=== PATIENT | female | born 1965 | race Caucasian/White ===

== ENCOUNTER 2023-07-17 00:29 | Emergency (ER) | payer OTHER, SELFPAY ==
[2023-07-17 00:38] VITALS: BP 154/88; PULSE 66; RESP 16; TEMP 36.5; O2SAT 99; BMI 23.0
--- NOTE | 2023-07-17 00:56 | XR_ITS ---
The [address] [address] Patient Name: SARATH PRICE MRN: [id number] date: 1965 Sex: F Assigned Patient Location: ED.MAIN Current Patient Location: Accession/Order Number: [id number] Exam Date: 07/17/2023 01:50 Report Date: 07/17/2023 02:20 At the request of: EUGENE KAPADIA Procedure: XR lumbar spine 2-3V EXAM: XR lumbar spine 2-3V HISTORY: fall COMPARISON: Lumbar x-ray dated 05/01/2023. Lumbar x-ray dated 04/03/2023. Lumbar MRI dated 01/20/2023. TECHNIQUE: Single AP and 2 lateral views of the lumbar spine are presented. FINDINGS: Stable appearance of postsurgical changes with multilevel laminectomy associated with pedicle screw and bar fixation extending from L3 through L5. Postsurgical changes are also present at the L5-S1 level with metallic densities consistent with prior surgery including solid trabeculated bony fusion across the disc space. Posterolateral fusion bone is also appreciated. The construct is intact. No gross evidence of displacement is seen. The appearance the construct is unchanged as compared to the prior examination. There is disc space narrowing at L4-5 which is increased as compared to the prior study with bony sclerosis of the endplates. This would be consistent with early trabeculation, however the study does not adequately evaluate for complete fusion. The L3-4 disc space is unchanged. Posterolateral fusion bone is appreciated with fusion of the facets at the L3-4 level. There is increase in trabeculation noted associated with posterolateral fusion bone. XR/XR lumbar spine 2-3V IMPRESSION: 1. Stable appearance of the pedicle screw and bar construct extending from L3 through L5 as compared to the prior study. 2. Findings consistent with solid trabeculated bony fusion L5-S1. 3. Disc space narrowing with endplate sclerosis at L4-5 which is increased as compared to the prior study. This finding would be consistent with early trabeculation, however MRI or CT would better evaluate the presence of fusion. There is posterolateral bony fusion noted at L3-4 and L4-5. Electronically authenticated by: LUIS CASILLAS Date: 07/17/2023 02:20
--- NOTE | 2023-07-17 00:56 | CT_ITS ---
The [address] [address] Patient Name: SARATH PRICE MRN: [id number] date: 1965 Sex: F Assigned Patient Location: ER Current Patient Location: ER Accession/Order Number: [id number] Exam Date: 07/17/2023 01:40 Report Date: 07/17/2023 02:04 At the request of: EUGENE KAPADIA Procedure: CT head/brain wo con INDICATION: 58 years old; Female. Patient fell 4 times tonight. Dizziness. Question confusion. Same symptoms 3 days ago. TECHNIQUE: CT Head (ax/cor/sag reformats). Ionizing radiation dose reduced via iterative reconstruction/FBP blend and body size kV/mA adjustment. Comparison: None FINDINGS: POSTOPERATIVE CHANGES: None. BRAIN PARENCHYMA: No focal lesions. No mass effect. No midline shift or herniation. No intraparenchymal or extra-axial hemorrhage. Normal velázquez/white differentiation. VENTRICLES/EXTRA-AXIAL SPACES: Normal for patient's age. SINUSES/MASTOIDS: The visualized sinuses are clear. Mastoids and middle ears are clear. MSK: No displaced or depressed calvarial fracture. OTHER: No hyperdense intraluminal thrombus. Vascular calcifications are present. CT/CT head/brain wo con IMPRESSION: 1. No acute intracranial abnormality. No hemorrhage or mass effect. 2. Vascular calcification. If there is concern for acute infarction, recommend further imaging with MRI including diffusion. Electronically authenticated by: LUIS CASILLAS Date: 07/17/2023 02:04
--- NOTE | 2023-07-17 00:56 | XR_ITS ---
The [address] [address] Patient Name: SARATH PRICE MRN: [id number] date: 1965 Sex: F Assigned Patient Location: ED.MAIN Current Patient Location: ER Accession/Order Number: [id number] Exam Date: 07/17/2023 01:50 Report Date: 07/17/2023 02:13 At the request of: EUEGNE KAPADIA Procedure: XR chest 1V EXAM: XR chest 1V HISTORY: weak COMPARISON: None. TECHNIQUE: Portable AP radiograph of the chest. FINDINGS: The cardiomediastinal silhouette and pulmonary vasculature are normal. No focal airspace consolidations, pleural effusions, or pneumothorax. XR/XR chest 1V IMPRESSION: Unremarkable radiographic evaluation of the chest. Electronically authenticated by: JETT BE Date: 07/17/2023 02:13
--- NOTE | 2023-07-17 00:56 | ECG_ITS ---
The [facility] Test Date: 2023-07-17 Pat Name: Coco Griffin Department: Room: - Gender: Female [employer]: : 1965 Requested By: [id number] Order Number: [id number] Reading MD: WILLIS ROGERS Measurements Intervals [place] Rate: 60 P: 79 FL: 210 QRS: 58 QRSD: 84 T: 72 QT: 430 QTc: 431 Interpretive Statements 1100 Sinus rhythm 2231 First degree AV block 9150 abnormal ECG No previous ECG available for comparison Electronically Signed On 07-18-2023 5:31:07 EST by WILLIS ROGERS
--- NOTE | 2023-07-17 00:57 | ED_ITS ---
HPI - General Adult General Chief complaint: Head Injury Stated complaint: incoherent fall Time Seen by Provider: 07/17/23 00:50 Source: patient Mode of arrival: walk-in History of Present Illness HPI narrative: 58-year-old female presents to the emergency department for weakness and falling. Her states she's fallen four times today. The patient states she hurt her lower back, where she had her surgery. She was seen at another [facility] emergency department three days ago and had an apparently negative workup. She is on baclofen and gabapentin. She states she hasn't taken more that then she is suppossed to, no new other medications. Related Data Home Medications Medication Instructions Recorded Confirmed baclofen 10 mg tablet mg 07/17/23 doxepin 100 mg capsule mg 07/17/23 gabapentin 800 mg tablet mg 07/17/23 lisinopril 10 tab 07/17/23 mg-hydrochlorothiazide 12.5 mg tablet propranolol 60 mg capsule,24 mg PO 07/17/23 hr,extended release Previous Rx's Medication Instructions Recorded acetaminophen 300 mg-codeine 30 mg 1 tab PO Q6H PRN pain #20 tabs 07/17/23 tablet Allergies Allergy/AdvReac Type Severity Reaction Status Date / Time No Known Drug Allergies Allergy Verified 07/17/23 00:45 Review of Systems ROS Narrative A ten point review of systems is negative except as noted above. PFSH PFSH Social History Smoking status: Current every day smoker Exam Narrative Exam Narrative: Nurses note and vital signs reviewed and patient is not hypoxic. General: The patient appears in no apparent respiratory distress. Skin: Warm, dry, no pallor noted. There is no rash noted. Head: Normocephalic, atraumatic Eye: Normal conjunctiva, no drainage, EOMI. PERRL Ears, Nose, Mouth, and Throat: oral mucosa is moist. Nares patent. Mouth without vesicles. Ear canals patent. Tm's without Erythema Cardiovascular: Regular Rate and Rhythm Respiratory: Patient is in no distress, no accessory muscle use, lungs are clear to auscultation, no wheezing, rales or rhonchi Back: old healed lumbar surgical scar present. No bruise or abrasion present GI: no tenderness to palpation, no masses appreciated. No rebound, guarding, or rigidity noted. Musculoskeletal: The patient has no evidence of calf tenderness, no pitting edema, symmetrical pulses noted bilaterally Neurological: A&O x4, speech is slow and minimally slurred. Upper and lower extremity strength intact. Psychiatric: Cooperative Constitutional Vital Signs, click to edit/add: Last Vital Signs Temp 97.7 F 07/17/23 00:38 Pulse 61 07/17/23 01:08 Resp 16 07/17/23 01:08 BP 106/60 07/17/23 02:46 Pulse Ox 97 07/17/23 02:46 O2 Del Method Room Air 07/17/23 00:38 Course Vital Signs Vital signs: Vital Signs Temperature 97.7 F 07/17/23 00:38 Pulse Rate 66 07/17/23 00:38 Respiratory Rate 16 07/17/23 00:38 Blood Pressure 154/88 H 07/17/23 00:38 Pulse Oximetry 99 07/17/23 00:38 Oxygen Delivery Method Room Air 07/17/23 00:38 Temperature 97.7 F 07/17/23 00:38 Pulse Rate 61 07/17/23 01:08 Respiratory Rate 16 07/17/23 01:08 Blood Pressure 106/60 07/17/23 02:46 Pulse Oximetry 97 07/17/23 02:46 Oxygen Delivery Method Room Air 07/17/23 00:38 Medical Decision Making MDM Narrative Medical decision making narrative: her laboratory analysis is negative. She tested positive for marijuana and benzodiazepines. She is on doxepin which is a tricyclic antidepressant and she tested positive for TCA also. She was recently started on baclofen and shortly afterwards is when her symptoms started. She'll discontinue the baclofen and follow up promptly with her family physician. Differential Diagnosis Differential Diagnosis: dehydration, anemia, acute kidney injury, lumbar fracture, acute ICH Lab Data Lab results reviewed: Yes I reviewed the patient's lab results Labs: Lab Results 07/17/23 07/17/23 Range/Units 01:00 03:04 WBC 8.4 (4.0-11.0) 10^3/uL RBC 4.12 L (4.20-5.40) 10^6/uL Hgb 12.7 (12.0-16.0) g/dL Hct 40.1 (36.0-48.0) % MCV 97.3 (81.0-99.0) fL MCH 30.8 (26.7-34.0) pg MCHC 31.7 (29.9-35.2) g/dL RDW 14.7 (11.0-15.0) % Plt Count 334 (150-450) 10^3/uL MPV 10.0 (9.5-13.5) fL Neut % (Auto) 59.6 (43.0-75.0) % Lymph % (Auto) 28.0 (20.5-60.0) % [place] % (Auto) 6.6 (1.7-12.0) % Eos % (Auto) 4.9 (0.9-7.0) % Baso % (Auto) 0.7 (0.2-2.0) % Neut # (Auto) 5.0 (1.4-6.5) 10^3/uL Lymph # (Auto) 2.4 (1.2-3.8) 10^3/uL [place] # (Auto) 0.6 (0.3-0.8) 10^3/uL Eos # (Auto) 0.4 (0.0-0.7) 10^3/uL Baso # (Auto) 0.1 (0.0-0.1) 10^3/uL Abs Immat Gran (auto) 0.02 (0.00-0.03) 10^3/uL Imm/Tot Granulo (auto) 0.2 (0.0-0.5) % Sodium 145 (136-145) mmol/L Potassium 3.7 (3.5-5.1) mmol/L Chloride 107 (98-107) mmol/L Carbon Dioxide 27.7 (21.0-32.0) mmol/L Anion Gap 14.0 BUN 47.0 H (7.0-18.0) mg/dL Creatinine 1.65 H (0.55-1.02) mg/dL Est GFR ( Amer) 39 L (>=60) Est GFR (Non-Af Amer) 32 L (>=60) BUN/Creatinine Ratio 28.5 Glucose 154 H (74-106) mg/dL Calcium 9.7 (8.5-10.1) mg/dL Total Bilirubin 0.2 (0.2-1.0) mg/dL Direct Bilirubin 0.1 (0.0-0.2) mg/dL AST 11 L (15-37) U/L ALT 22 (14-59) U/L Alkaline Phosphatase 135 H (46-116) U/L Total Protein 8.1 (6.4-8.2) g/dL Albumin 3.9 (3.4-5.0) g/dL Globulin 4.2 g/dL Albumin/Globulin Ratio 0.9 Urine Color Lt. yellow (YELLOW) Urine Clarity Clear (CLEAR) Urine pH 6.5 (5.0-9.0) Ur Specific [place] 1.015 (1.005-1.025) Urine Protein Negative (NEG/TRACE) mg/dL Urine Glucose (UA) Negative (NEGATIVE) mg/dL Urine Ketones Negative (NEGATIVE) mg/dL Urine Occult Blood Negative (NEGATIVE) Urine Nitrite Negative (NEGATIVE) Urine Bilirubin Negative (NEGATIVE) Urine Urobilinogen 0.2 (0.2-1.0) EU/dL Ur Leukocyte Esterase Trace A (NEGATIVE) Urine RBC 0-2 (0-2) #/HPF Urine WBC 0-2 A (NONE SEEN) #/HPF Ur Squamous Epith Cells Rare (NONE/RARE) #/LPF Urine Crystals None seen (None Seen) #/HPF Urine Bacteria None seen (NONE SEEN) #/HPF Urine Casts None seen (NONE SEEN) #/LPF Urine Mucus None seen (NONE SEEN) Urine Opiates Screen Negative (NEGATIVE) Ur Buprenorphine Scrn Negative (NEGATIVE) Ur Oxycodone Screen Negative (NEGATIVE) Urine Methadone Screen Negative (NEGATIVE) Ur Barbiturates Screen Negative (NEGATIVE) U Tricyclic Antidepress Positive A (NEGATIVE) Ur Phencyclidine Scrn Negative (NEGATIVE) Ur Amphetamines Screen Negative (NEGATIVE) U Methamphetamines Scrn Negative (NEGATIVE) U Benzodiazepines Scrn Positive A (NEGATIVE) Urine Cocaine Screen Negative (NEGATIVE) U Cannabinoids Screen Positive A (NEGATIVE) Ethanol Quant <3 mg/dL Imaging Data CT brain, lumbar x-rays, chest x-ray: Radiologist's impression: ITS Impressions Chest X-Ray 07/17/23 00:56 IMPRESSION: Unremarkable radiographic evaluation of the chest. Electronically authenticated by: JETT BE Date: 07/17/2023 02:[address] 07/17/23 00:56 IMPRESSION: 1. No acute intracranial abnormality. No hemorrhage or mass effect. 2. Vascular calcification. If there is concern for acute infarction, recommend further imaging with MRI including diffusion. Electronically authenticated by: LUIS CASILLAS Date: 07/17/2023 02:04 Lumbar Spine X-Ray 07/17/23 00:56 IMPRESSION: 1. Stable appearance of the pedicle screw and bar construct extending from L3 through L5 as compared to the prior study. 2. Findings consistent with solid trabeculated bony fusion L5-S1. 3. Disc space narrowing with endplate sclerosis at L4-5 which is increased as compared to the prior study. This finding would be consistent with early trabeculation, however MRI or CT would better evaluate the presence of fusion. There is posterolateral bony fusion noted at L3-4 and L4-5. Electronically authenticated by: LUIS CASILLAS Date: 07/17/2023 02:20 ECG Data Attestation: I personally reviewed and interpreted this ECG as follows: (EKG on my interpretation shows normal sinus rhythm with no acute changes and a rate of 60.) Discharge Plan Discharge Chief Complaint: Head Injury Clinical Impression: Medication side effects Patient Disposition: Home, Self-Care Time of Disposition Decision: 03:38 Condition: Good Mode of Transportation: Private Vehicle Prescriptions / Home Meds: New acetaminophen-codeine 300-30 mg tablet 1 tab PO Q6H PRN (Reason: pain) Qty: 20 0RF No Action propranolol 60 mg capsule,extended release 24 hr PO gabapentin 800 mg tablet baclofen 10 mg tablet doxepin 100 mg capsule lisinopril-hydrochlorothiazide 10-12.5 mg tablet Instructions: Adverse Drug Reaction (ED) Additional Instructions: Discontinue baclofen. Follow-up with your doctor to determine what medications you should be on. Discontinue use of marijuana. Stand Alone Forms: Portal Instructions Referrals: Physician,Non-Staff, MD [Primary Care Provider] - 1 week
[2023-07-17 01:08] VITALS: PULSE 61; RESP 16
[2023-07-17 01:13] LABS: Basophils Absolute Auto 0.1 10^3/uL (0.0-0.1); Basophils Percent Auto 0.7 % (0.2-2.0); Eosinophils Absolute Auto 0.4 10^3/uL (0.0-0.7); Eosinophils Percent Auto 4.9 % (0.9-7.0); Hematocrit 40.1 % (36.0-48.0); Hemoglobin 12.7 g/dL (12.0-16.0); Immature Granulocytes Abs Auto 0.02 10^3/uL (0.00-0.03); Immature Granulocytes Pct Auto 0.2 % (0.0-0.5); Lymphocytes Absolute Auto 2.4 10^3/uL (1.2-3.8); Mean Corpuscular HGB Conc 31.7 g/dL (29.9-35.2); Mean Corpuscular Hemoglobin 30.8 pg (26.7-34.0); Mean Corpuscular Volume 97.3 fL (81.0-99.0); Monocytes Absolute Auto 0.6 10^3/uL (0.3-0.8); Monocytes Percent Auto 6.6 % (1.7-12.0); Neutrophils Percent Auto 59.6 % (43.0-75.0); Platelet Count 334 10^3/uL (150-450); Red Blood Count 4.12 10^6/uL (4.20-5.40); Red Cell Distribution Width 14.7 % (11.0-15.0); White Blood Count 8.4 10^3/uL (4.0-11.0)
[2023-07-17 01:20] LABS: BUN Creatinine Ratio 28.5; Calcium 9.7 mg/dL (8.5-10.1); Carbon Dioxide 27.7 mmol/L (21.0-32.0); Chloride 107 mmol/L (98-107); Estimated GFR (African America 39 (>=60); Estimated GFR (Non-African Ame 32 (>=60); Glucose 154 mg/dL (74-106); Potassium 3.7 mmol/L (3.5-5.1); Sodium 145 mmol/L (136-145)
[2023-07-17 01:26] LABS: Alanine Aminotransferase 22 U/L (14-59); Albumin Globulin Ratio 0.9; Albumin Level 3.9 g/dL (3.4-5.0); Alkaline Phosphatase 135 U/L (46-116); Aspartate Amino Transferase 11 U/L (15-37); Bilirubin Direct 0.1 mg/dL (0.0-0.2); Bilirubin Total 0.2 mg/dL (0.2-1.0); Globulin 4.2 g/dL; Total Protein 8.1 g/dL (6.4-8.2)
[2023-07-17 01:27] LABS: Ethanol <3 mg/dL
[2023-07-17 02:46] VITALS: BP 106/60; O2SAT 97
[2023-07-17 03:16] LABS: Bilirubin Urine NEGATIVE (NEGATIVE); Blood Urine NEGATIVE (NEGATIVE); Clarity Urine CLEAR (CLEAR); Color Urine LT. YELLOW (YELLOW); Glucose Urine UA NEGATIVE (NEGATIVE); Ketones Urine NEGATIVE (NEGATIVE); Leukocyte Esterase Urine TRACE (NEGATIVE); Nitrite Urine NEGATIVE (NEGATIVE); Protein Urine NEGATIVE (NEG/TRACE); Specific Gravity Urine 1.015 (1.005-1.025); Urobilinogen Urine 0.2 EU/dL (0.2-1.0); pH Urine 6.5 (5.0-9.0)
[2023-07-17 03:27] LABS: Amphetamine Screen Urine NEGATIVE (NEGATIVE); Bacteria Urine NONE SEEN #/HPF (NONE SEEN); Benzodiazepines Screen Urine POSITIVE (NEGATIVE); Cannabinoid Screen Urine POSITIVE (NEGATIVE); Cast Seen? NONE SEEN #/LPF (NONE SEEN); Cocaine Screen Urine NEGATIVE (NEGATIVE); Crystals Seen? None Seen #/HPF (None Seen); Methamphetamines Screen Urine NEGATIVE (NEGATIVE); Mucus Urine NONE SEEN (NONE SEEN); Opiate Screen Urine NEGATIVE (NEGATIVE); Phencyclidine Screen Urine NEGATIVE (NEGATIVE); RBC Urine 0-2 #/HPF (0-2); Squamous Epithelial Cell Urine RARE #/LPF (NONE/RARE); Tricyclic Antidepressant Urine POSITIVE (NEGATIVE); WBC Urine 0-2 #/HPF (NONE SEEN)
[2023-07-17 03:28] LABS: Barbiturates Screen Urine NEGATIVE (NEGATIVE); Buprenorphine Screen Urine NEGATIVE (NEGATIVE); Methadone Screen Urine NEGATIVE (NEGATIVE); Oxycodone Screen Urine NEGATIVE (NEGATIVE)
== END 2023-07-17 04:00 | disposition home or self-care (01) ==
PROVIDERS: Emergency Provider Emergency Medicine
DX: R53.1 Weakness (principal); Z79.899 Other long term (current) drug therapy; F17.210 Nicotine dependence, cigarettes, uncomplicated; Z91.81 History of falling; F12.90 Cannabis use, unspecified, uncomplicated; T42.8X5A Adverse effect of antiparkinsonism drugs and other central muscle-tone depressants, initial encounter
CPT/HCPCS: 36415; 70450; 71045; 72100; 80048; 80076; 80307; 80320; 81001; 85025; 93005; 99285